=== PATIENT | male | born 1940 | race Caucasian/White ===

== ENCOUNTER 2018-11-19 04:34 | Emergency (ER) | payer OTHER ==
[~2018-11-19] VITALS: Ht 172.7 cm; Wt 73.9 kg
[2018-11-19 04:43] VITALS: BP 125/67; Ht 172.7 cm; Wt 73.9 kg
== END 2018-11-19 07:20 | disposition home or self-care (01) ==
LOC: ED 04:34
DX: H10.9 Unspecified conjunctivitis (principal); Z88.5 Allergy status to narcotic agent
CPT/HCPCS: V2632